=== PATIENT | male | born 1980 | race Caucasian/White ===

== ENCOUNTER 2024-11-25 08:37 | Day surgery (SDC) | payer OTHER ==
[2024-11-25] MEDS ORDERED: CEFOXITIN 2 GM/100 ML NACL IVPB 2 GM/100 ML IVPB IV ONE (08:56)
[2024-11-25] MEDS ORDERED: celeBREX 100 MG ONE (08:56)
[2024-11-25] MEDS ORDERED: Lactated Ringers 1,000 ML IV ONE (08:56)
[2024-11-25] MEDS ORDERED: Decadron 4 MG ONE (08:56)
[2024-11-25] MEDS ORDERED: NEURONTIN ONE (08:56)
[2024-11-25] MEDS ORDERED: Sodium Chloride 0.9% 1000 ML 1,000 ML ONE (09:13)
[2024-11-25] MEDS ORDERED: Sensorcaine 0.25% 10 ML ONE (09:13)
[2024-11-25] MEDS: Decadron 4 MG PO ONE (09:14)
[2024-11-25] MEDS: NEURONTIN PO ONE (09:15)
[2024-11-25] MEDS: celeBREX 100 MG PO ONE (09:15)
[2024-11-25] MEDS: TYLENOL EXTRA STRENGTH 500 MG PO ONE (09:15)
[2024-11-25] MEDS: CEFOXITIN 2 GM/100 ML NACL IVPB 2 GM/100 ML IVPB IV ONE (09:16)
[2024-11-25] MEDS: Lactated Ringers 1,000 ML IV SCH (09:16)
[2024-11-25 09:37] VITALS: RESP 18
[2024-11-25 09:41] LABS: ANION GAP 17.2 MEQ/L (5-15); Calcium 8.8 mg/dL (8.4-10.2); Creatinine 1 0.7 mg/dL (0.66-1.25); EST GLOMERULAR FILTRATION RATE 117.3 ML/MIN; Potassium 4.5 mmol/L (3.5-5.1)
[2024-11-25] MEDS ORDERED: dexAMETHasone sodium phosphate ONE (11:28)
[2024-11-25] MEDS ORDERED: Quelicin Fliptop 200 MG/10 ML ONE ×2 (11:28→11:30)
[2024-11-25] MEDS ORDERED: ROCURONIUM BROMIDE IV ONE (11:28)
[2024-11-25] MEDS ORDERED: BRIDION 200MG/2ML IV ONE (11:28)
[2024-11-25] MEDS ORDERED: Xylocaine-Mpf 2% 5 Ml Vial ONE (11:28)
[2024-11-25] MEDS ORDERED: Zofran 4 MG/2 ML VIAL ONE (11:28)
[2024-11-25] MEDS ORDERED: SUBLIMAZE 100 MCG/2 ML ONE ×2 (11:28→13:24)
[2024-11-25] MEDS ORDERED: propofoL IV ONE ×3 (11:28→13:05)
[2024-11-25] MEDS ORDERED: DILAUDID 2 MG INJECTION ONE (12:30)
[2024-11-25] MEDS ORDERED: Hydromorphone 1 mg/ml Injection ONE (13:24)
[2024-11-25 14:10] VITALS: PULSE 50
[2024-11-25 14:29] VITALS: BP 133/74; TEMP 97.2; O2SAT 97
--- NOTE | 2024-11-26 11:17 | OP ---
SURGERY DATE: 11/25/2024 [id number] PREOPERATIVE DIAGNOSIS: Chronic cholecystitis, cholelithiasis. POSTOPERATIVE DIAGNOSIS: Chronic cholecystitis, cholelithiasis. PROCEDURE PERFORMED: Laparoscopic cholecystectomy. SURGEON: Ramy Jaimes MD ANESTHESIA: General. ESTIMATED BLOOD LOSS: Minimal. PATIENT CONDITION: Stable. COMPLICATIONS: None. SPECIMENS: Gallbladder. HISTORY OF PRESENT ILLNESS: The patient is a 43-year-old male with intermittent upper postprandial abdominal pain. Imaging showing gallstones. Discussion had with patient, risk of infection, bleeding, injury to nearby structure, hernia, failure to resolve symptoms. He elected to proceed with surgery. FINDINGS: Omental adhesions plastered to the gallbladder. Critical view obtained. DESCRIPTION OF PROCEDURE AND FINDINGS: The patient was brought to the operating room. General anesthesia induced. Routinely positioned, prepped, and draped. Time-out performed. Received preoperative antibiotic. The Veress needle was inserted in left upper quadrant. Pneumoperitoneum established. A 5 mm Optiview trocar placed in left upper quadrant. Abdomen surveyed. An 11 mm right paramedian trocar was placed. Two additional 5 mm trocars placed in right upper quadrant. Marcaine injected in all incision sites. The omentum was plastered up against the gallbladder so this was carefully taken down. None of these are really dense adhesions so eventually that is all taken down then the cystic triangle dissected out. Critical view was clearly obtained. Clipped with 5 mm metal clip welder gas tungsten arc, divided. Gallbladder was taken off the liver bed, placed in a specimen bag, removed through the 11 trocar site. Right upper quadrant reinspected. Clips are in good position. There is good hemostasis. The 11 sites closed with 0 Vicryl interrupted suture passer. Right upper quadrant ports removed under direct visualization. Left upper quadrant port used for desufflation and then removed. Skin was closed with 4-0 Vicryl sutures. Steri-Strips and sterile dressings applied. All counts were correct. The patient tolerated the procedure well. Plan is for extubation.
== END 2024-11-25 14:39 | disposition home or self-care (01) ==
LOC: SDC 08:37
PROVIDERS: ATTEND Surgery
DX: K80.10 Calculus of gallbladder with chronic cholecystitis without obstruction (principal)
CPT/HCPCS: 36415; 80048; 93005; J0330; J0694; J1100; J1171; J2405; J2704; J3010; A9270-GY